=== PATIENT | male | born 1975 | race Caucasian/White ===

== ENCOUNTER → 2016-12-02 | Outpatient (CLI) | payer BC ==
[~2016-12-02] MED LIST: COZAAR50 MG; LIPITOR80 MG; METOPROLOL SUCC25 M1; PLAVIX 75MG TAB75 MG
== END ==
LOC: RAD 10:52
DX: S22.089D Unspecified fracture of T11-T12 vertebra, subsequent encounter for fracture with routine healing (principal); S32.019D Unspecified fracture of first lumbar vertebra, subsequent encounter for fracture with routine healing; X58.XXXA Exposure to other specified factors, initial encounter

== ENCOUNTER → 2017-01-23 | Outpatient (CLI) | payer BC | LOC: RAD 06:59 | DX: S22.080D Wedge compression fracture of T11-T12 vertebra, subsequent encounter for fracture with routine healing (principal) ==

== ENCOUNTER → 2017-09-25 | Outpatient (CLI) | payer BC ==
[2014-06-10 14:05] VITALS: BP 122/76
[2017-09-25 13:49] LABS: BASO # 0.1 (0.02-0.10); EOS # 0.3 (0.04-0.40); EOS % 2.5 % (0.0-4.0); HEMATOCRIT 45.7 % (42.0-52.0); HEMOGLOBIN 16.1 g/dL (13.5-18.0); LYMPH# 2.8 (1.50-4.00); MEAN CELL VOLUME 95 fl (78-100); MEAN CORPUSCULAR HEMOGLOBIN 34 pg (27-31); MEAN CORPUSCULAR HGB CONC 35 g/dL (33-37); MONO # 1.3 (0.20-0.80); NEU # 7.7 (1.40-6.50); PLATELET COUNT 305 K/mm3 (130-400); RED CELL DISTRIBUTION WIDTH 13.2 % (11.5-14.5); WHITE BLOOD COUNT 12.1 K/mm3 (4.8-10.8)
[2017-09-25 14:58] LABS: ERYTHROCYTE SEDIMENTATION RATE 1 mm/hr (0-15)
== END ==
LOC: LAB 13:28
PROVIDERS: Family Medicine
DX: H57.8 Other specified disorders of eye and adnexa (principal); H10.021 Other mucopurulent conjunctivitis, right eye; L03.213 Periorbital cellulitis
CPT/HCPCS: Q9967

== ENCOUNTER → 2025-02-07 | Outpatient (CLI) | payer BC ==
[~2025-02-07] MED LIST changes: +ATORVASTATIN CA80 MG PO; +CARVEDILOL12.5 MG PO; +EZETIMIBE10 M1 PO; +PRASUGREL HCL10 MG PO; +PRILOSEC 20MG20 MG PO; +WELLBUTRIN SR150 M2 PO; +ZESTRIL5 M1 PO
== END ==
LOC: RAD 14:20
DX: M47.26 Other spondylosis with radiculopathy, lumbar region (principal); M48.04 Spinal stenosis, thoracic region; M48.07 Spinal stenosis, lumbosacral region; M48.061 Spinal stenosis, lumbar region without neurogenic claudication